=== PATIENT | male | born 1980 | race Caucasian/White ===

== ENCOUNTER 2022-06-16 09:41 | Emergency (ER) | payer BC ==
[~2022-06-16] VITALS: Ht 182.9 cm; Wt 147.4 kg
[2022-06-16] MEDS ORDERED: CORTISPORIN-TC10 M1 LEFT EAR (10:45)
[2022-06-16] MEDS ORDERED: ULTRAM 50MG50 MG PO (10:50)
[2022-06-16 11:12] VITALS: BP 166/102
== END 2022-06-16 11:20 | disposition home or self-care (01) ==
LOC: FSED 10:17
DX: H60.92 Unspecified otitis externa, left ear (principal); R03.0 Elevated blood-pressure reading, without diagnosis of hypertension
CPT/HCPCS: 99282

== ENCOUNTER 2022-06-29 12:58 | Emergency (ER) | payer BC ==
[~2022-06-29] VITALS: Ht 180.3 cm; Wt 173.7 kg
[~2022-06-29 12:58] MED LIST: CORTISPORIN-TC10 M1 LEFT EAR; ULTRAM 50MG50 MG PO
== END 2022-06-29 14:04 | disposition home or self-care (01) ==
LOC: FSED 13:05
DX: H92.02 Otalgia, left ear (principal); H69.92 Unspecified Eustachian tube disorder, left ear; I10 Essential (primary) hypertension
CPT/HCPCS: 99282